=== PATIENT | female | born 1935 | race Caucasian/White ===

== ENCOUNTER 2016-03-05 17:24 | Inpatient (IN) | payer OTHER ==
[~2016-03-05] VITALS: Ht 167.6 cm; Wt 74.9 kg
[~2016-03-05 17:24] MED LIST: AMIODARONE HCL200 MG PO; ELIQUIS5 MG PO; ERGOCALCIF50000 UNIT PO; LEVOTHYROXINE150 MCG PO; OXYBUTYNIN CHLO10 MG PO; VALSARTAN-HCTZ1 EAC1 PO
[2016-03-05 18:10] LABS: HEMATOCRIT 38.1 % (36.0-46.0); MCH 29.5 PG (29.0-34.0); MCHC 34.1 G/DL (30.0-36.0); MCV 86.4 FL (83-99); MEAN PLAT.VOLUME 12.8 uM^3 (9.5-12.4); PLATELET COUNT 225 K/uL (156-360); RBC DIS.WIDTH-CV 15.4 % (11.8-14.6); RBC DIS.WIDTH-SD 48.2 % (39-53); RED BLOOD COUNT 4.41 M/uL (3.80-5.20); WHITE BLOOD COUNT 6.4 K/uL (4.1-10.2)
[2016-03-05 18:27] LABS: CHLORIDE 94 mEq/L (99-109); POTASSIUM 3.5 mEq/L (3.7-5.4); SODIUM 130 mEq/L (136-147)
[2016-03-05 18:28] LABS: GLUCOSE 116 mg/dL (70-99)
[2016-03-05 18:29] LABS: ANION GAP 14 MEQ/L (2-14)
[2016-03-05 18:32] LABS: GFR ESTIMATE (CALCULATED) > 59 mL/min/; TROP-I INTERPRETATION NEGATIVE; TROPONIN-I 0.01 ng/mL (0.0-0.30)
[2016-03-05 18:33] LABS: UREA NITROGEN (BUN) 15 mg/dL (9-23)
[2016-03-05] MEDS ORDERED: VITAMIN B12 100MCG PO (21:17)
[2016-03-05] MEDS ORDERED: OMEPRAZOLE40 M1 PO (21:18)
[2016-03-05] MEDS ORDERED: XARELTO15 MG PO (21:19)
[2016-03-05] MEDS ORDERED: TOLTERODINE TART4 MG PO (21:19)
[2016-03-05] MEDS ORDERED: PROBIOTIC1 EAC2 PO (21:19)
[2016-03-05] MEDS ORDERED: LOPRESSOR25 MG PO (21:19)
[2016-03-05] MEDS ORDERED: CALTRATE PLUS1 EACH PO (21:20)
[2016-03-06] VITALS (16 sets, daily range): BP systolic 107–172; BP diastolic 61–101
[2016-03-06 03:09] LABS: MCH 29.2 PG (29.0-34.0); MCHC 34.1 G/DL (30.0-36.0); MCV 85.6 FL (83-99); MEAN PLAT.VOLUME 12.6 uM^3 (9.5-12.4); PLATELET COUNT 208 K/uL (156-360); RBC DIS.WIDTH-CV 15.3 % (11.8-14.6); RBC DIS.WIDTH-SD 47.1 % (39-53); RED BLOOD COUNT 4.32 M/uL (3.80-5.20); WHITE BLOOD COUNT 5.9 K/uL (4.1-10.2)
[2016-03-06 03:31] LABS: TROP-I INTERPRETATION NEGATIVE; TROPONIN-I < 0.01 ng/mL (0.0-0.30)
[2016-03-06 09:29] LABS: TROP-I INTERPRETATION NEGATIVE; TROPONIN-I < 0.01 ng/mL (0.0-0.30)
[2016-03-07 04:00] VITALS: BP 117/73
[2016-03-07 08:19] VITALS: BP 133/86
[2016-03-07 08:29] LABS: HEMATOCRIT 35.2 % (36.0-46.0); MCH 28.6 PG (29.0-34.0); MCV 86.7 FL (83-99); MEAN PLAT.VOLUME 12.7 uM^3 (9.5-12.4); PLATELET COUNT 214 K/uL (156-360); RBC DIS.WIDTH-CV 15.5 % (11.8-14.6); RED BLOOD COUNT 4.06 M/uL (3.80-5.20); WHITE BLOOD COUNT 4.9 K/uL (4.1-10.2)
[2016-03-07 08:53] LABS: ANION GAP 9 MEQ/L (2-14); CHLORIDE 99 MEQ/L (99-109); GFR ESTIMATE (CALCULATED) > 59 mL/min/; GLUCOSE 94 mg/dL (70-99); POTASSIUM 3.5 MEQ/L (3.7-5.4); SAMPLE HEMOLYSIS CHECK 0; SAMPLE ICTERIC CHECK 0; SAMPLE LIPEMIA CHECK 0; SODIUM 135 MEQ/L (136-147); UREA NITROGEN (BUN) 12 mg/dL (9-23)
[2016-03-07 11:40] VITALS: BP 99/55
[2016-03-07 15:46] VITALS: BP 132/59
[2016-03-07 20:00] VITALS: BP 130/63
[2016-03-07 23:38] VITALS: BP 105/66
[2016-03-08 03:55] VITALS: BP 130/62
[2016-03-08 07:30] VITALS: BP 126/60
[2016-03-08 08:18] LABS: MCH 29.4 PG (29.0-34.0); MCHC 33.2 G/DL (30.0-36.0); MCV 88.3 FL (83-99); MEAN PLAT.VOLUME 12.8 uM^3 (9.5-12.4); PLATELET COUNT 228 K/uL (156-360); RBC DIS.WIDTH-CV 15.8 % (11.8-14.6); RBC DIS.WIDTH-SD 50.7 % (39-53); RED BLOOD COUNT 4.19 M/uL (3.80-5.20); WHITE BLOOD COUNT 4.7 K/uL (4.1-10.2)
[2016-03-08 08:41] LABS: ANION GAP 9 MEQ/L (2-14); CHLORIDE 98 MEQ/L (99-109); GFR ESTIMATE (CALCULATED) > 59 mL/min/; GLUCOSE 86 mg/dL (70-99); POTASSIUM 3.9 MEQ/L (3.7-5.4); SAMPLE HEMOLYSIS CHECK 0; SAMPLE ICTERIC CHECK 0; SAMPLE LIPEMIA CHECK 0; SODIUM 136 MEQ/L (136-147); UREA NITROGEN (BUN) 18 mg/dL (9-23)
[2016-03-08 11:10] VITALS: BP 105/53
[2016-03-08] MEDS ORDERED: CARDIZEM CD,CA240 MG PO (13:10)
== END 2016-03-08 14:22 | disposition home or self-care (01) | DRG 308 ==
LOC: EME 17:24 → EDOF 21:47 → 4EAST 21:47
PROVIDERS: Internal Medicine
DX: I48.1 Persistent atrial fibrillation (principal); I50.31 Acute diastolic (congestive) heart failure; I31.3 Pericardial effusion (noninflammatory); E87.1 Hypo-osmolality and hyponatremia; E87.6 Hypokalemia; I44.7 Left bundle-branch block, unspecified; E03.9 Hypothyroidism, unspecified; I10 Essential (primary) hypertension; K21.9 Gastro-esophageal reflux disease without esophagitis; R60.9 Edema, unspecified; Z98.84 Bariatric surgery status; Z90.49 Acquired absence of other specified parts of digestive tract
CPT/HCPCS: 71020; 80048; 84484; 85027; 93005; 93306; 99281; 99285; J1940